=== PATIENT | male | born 1960 | race African-American/Black ===

== ENCOUNTER 2022-07-17 10:45 | Emergency (ER) | payer BC ==
[~2022-07-17] VITALS: Ht 172.7 cm; Wt 79.4 kg
[2022-07-17 11:02] VITALS: BP_SYST 159
--- NOTE | 2022-07-17 11:02 | NUR ---
PT BIB SELF FROM AN URGENT CARE WITH C/O PERTONSILLAR ABSESS. HX - N/A PT AAXO4, VSS, NAD, BREATHING IS EVEN AND UNLABORED. PT AMBULATORY WITH STEADY GAIT. PT ON VIDEOTAPE SALES REPRESENTATIVE SHOWING NSR. HOB ELEVATED, SIDE RIALS UP, BED IN LOWEST POSITION,CALL LIGHT WITHIN REACH. SAFETY PRECUATIONS AND COMFORT MEASURES IN PLACE. PENDING MD COLEMAN AND ORDERS.
--- NOTE | 2022-07-17 11:05 | NUR ---
DR. HUMPHREY AT BEDSIDE EXAMINING THE PT.
[2022-07-17] MEDS ORDERED: BENZOCAINE 20% 0.5mL UD SPRAY MM ONE (13:00)
[2022-07-17] MEDS ORDERED: cefTRIAXone 1 GM VIAL IM ONE (13:30)
[2022-07-17] MEDS ORDERED: DEXAMETHASONE SOD PHOSPHATE 10 MG/ML VIAL IM ONE (13:30)
[2022-07-17] MEDS ORDERED: TRAM50TA2 PO (13:31)
--- NOTE | 2022-07-17 14:03 | NUR ---
PT MEDICALLY CLEARED FOR D/C. D/C INSTRUCTIONS GIVEN TO PT. PT TO FOLLOW-UP WITH PCP WITHIN 1-3 DAYS AND TO RETURN TO ED FOR WORSENING S/S. PT VERBALIZED UNDERSTANDING. PT AAOX4, NAD, VSS, WRITSTBAND REMOVED. PT AMBULATORY WITH STEADY GAIT. PT LEFT WITH ALL BELONGINGS.
[2022-07-17 14:04] VITALS: BP_SYST 147
== END 2022-07-17 14:03 | disposition home or self-care (01) ==
LOC: SED 10:45
DX: J36 Peritonsillar abscess (principal); Z79.899 Other long term (current) drug therapy
CPT/HCPCS: 99285; 10060; 70490; 76376; 96372; J0696; J1100